=== PATIENT | male | born 1985 | race Caucasian/White ===

== ENCOUNTER 2018-05-29 10:42 | Emergency (ER) | payer OTHER ==
--- OUTSIDE RECORDS SUMMARY | 2018-05-29 10:47 | XMS REPORT ---
:1985 External Reference #:[id number] Author Organization [employer] Address [address] [place] [address] [place] [address] Phone [phone] Care Team Providers Name Role Phone Hugh Guillen MD Primary Care Physician Unavailable Payers Type Date Identification Numbers Payment Provider Subscriber Commercial PayID: [id number] [employer] Milla Rios [address] [place] [address] Medigap Part B Effective: 2012 Policy Number: BS Facets Milla Rios [id number] Expires: 2018 PayID: [id number] [address] [address] [place] [address] Problems Date Description Provider Status Onset: 05/22/2018 Injury of hip region Jessica Reese M.D. 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 Family History Date Family Member(s) Problem(s) Comments General Unknown Social History Type Date Description Comments Lives With Spouse Occupation Currently Working Occupation overhauler bus truck ETOH Use Denies alcohol use Smoking Patient is a former smoker Recreational Drug Use Denies Drug Use Exercise Type/Frequency Exercises sporadically Allergies, Adverse Reactions, Alerts Date Description Reaction Status Severity Comments 11/06/2014 NKDA active Medications Medication Date Status Form Strength Qnty SIG Indications Ordering Provider Naprosyn 11/07/19 Active Tablets 500mg 60tabs 1 by 722.10 Marko Anand, twice a M.D. day after meals Muscle Relaxer Active Unknown 00 No Active 11/07/19 Hx Marko Medications 15 - Cheng, 11/07/19 Evelin 15 Vital Signs Date Vital Result Comment 05/22/2018 Height 67 inches 5'7" Weight 190.00 lb Heart Rate 68 /min BP Systolic 130 mmHg BP Diastolic 82 mmHg Body Temperature 97.6 F Pain Level 4 BMI (Body Mass Index) 29.8 kg/m2 11/06/2014 Height 67 inches 5'7" Weight 193.00 lb Heart Rate 76 /min BP Systolic Sitting 120 mmHg BP Diastolic Sitting 70 mmHg Pain Level 0 BMI (Body Mass Index) 30.2 kg/m2 Results Description No Information Procedures Description No Information Encounters Type Date Location Provider CPT E/M Dx Office Visit 05/22/2018 [facility] Jessica Reese M.D. 34096 M25.562 9:30a [facility] [place] M25.462 S76.102A Office Visit 11/06/2014 3:00p [facility] Marko Anand, 36468 722.10 [facility] [place] Office Visit 03/07/2012 10:00a [facility] Marko Smyth, 59494 353.0 Services [facility] [place] 331.83 Plan of Care 05/22/2018 - Jessica Reese M.D.M25.562 Pain in left kneeM25.462 Effusion, left kneeS76.102A Unsp injury of left quadriceps musc/fasc/tend, initNew Therapy: Physical TherapyFollow up:Follow up: after testing is completed - mri l knee
[2018-05-29 11:11] VITALS: BP 121/75
[2018-05-29] MEDS ORDERED: Tetan/Diph/Pertus SYR(Tdap)* 0.5 ML SYR(BOOSTRIX) use SYR IM ONE (11:44)
[2018-05-29] MEDS ORDERED: Amoxicillin/Clavulanate TAB* 875 MG PO ONE (11:50)
--- NOTE | 2018-05-29 12:01 | UC ---
Head Injury HPI - HPI Summary HPI Summary: 32 year old male with no PMH, no medications, yesterday afternoon put drill bit through left index finger at tip, + bleeding, + pain, no treatment overnight. Feeling well otherwise, some decreased sensation at end of finger, feels "asleep ", no drainage., has MRI this afternoon. - History Of Current Complaint Chief Complaint: UCUpperExtremity Stated Complaint: FINGER INJURY Time Seen by Provider: 05/29/18 11:43 Hx Obtained From: Patient Onset/Duration: Sudden Onset Severity Currently: Mild Severity Initially: Moderate Pain Intensity: 7 Pain Scale Used: 0-10 Numeric - Allergies/Home Medications Allergies/Adverse Reactions: Allergies Allergy/AdvReac Type Severity Reaction Status Date / Time No Known Allergies Allergy Verified 05/29/18 11:11 Home Medications: Home Medications Cholecalciferol (Vitamin D3) [Vitamin D3] 1,000 unit PO 05/29/18 [History] PMH/Surg Hx/FS Hx/Imm Hx Previously Healthy: Yes - Surgical History Surgical History: Yes Surgery Procedure, Year, and Place: RIGHT HAND SURGERY-REATTACHED PINKY FINGER - Family History Known Family History: Positive: None - Social History Alcohol Use: None Substance Use Type: None Smoking Status (MU): Former Smoker Type: Cigarettes Amount Used/How Often: quit 2009 Have You Smoked in the Last Year: No Review of Systems Musculoskeletal: Arthralgia, Decreased ROM, Edema, Myalgia Is Patient Immunocompromised?: No All Other Systems Reviewed And Are Negative: Yes Physical Exam Triage Information Reviewed: Yes Appearance: Well-Appearing, No Pain Distress, Well-Nourished Vital Signs: Initial Vital Signs Temp 98.9 F 05/29/18 11:06 Pulse 64 05/29/18 11:06 Resp 18 05/29/18 11:06 BP 121/75 05/29/18 11:06 Pulse Ox 99 05/29/18 11:06 Vital Signs Reviewed: Yes Eye Exam: Normal Musculoskeletal: Positive: Strength Intact - slightly diminished to reistence 2nd DIP 2nd MCP, PIP intact., ROM Intact Neurological Exam: Normal Neurological: Positive: Other: - slightly decreased sensation to light touch DIP 2nd l Skin: Positive: Other - two puncture wounds over lateral 2nd DIP L to dorsal side. no bleeding drainage, no erythema, warmth noted. ROM decreased due to pain but AROM against resistance to DIP, PIP MCP 2nd L hand. No swelling, tendneress of other joints, no lymphangitic spread noted. Head Injury Course/Dx - Course Course Of Treatment: X-ray: metalic FB seen superficial, after irrigationand gentle non-abrasive debridement, repeat x-ray negative. wound soaked, dressing , ABX. - Warm soapy water soaks three times a day for 5-10 minutes. - Return with increased swelling, pain, redness. - Follow up with ortho for wound check in 5-7 days. - daily dressing- gauze over openings covered with Koban dressing , change when wet or at least daily. - OK to shower, do not soak/ exposure hand to dishwater, chemicals, etc. - Differential Dx/Diagnosis Differential Diagnosis/HQI/PQRI: Hematoma, Laceration Provider Diagnoses: puncture wound left DIP 2nd Discharge - Sign-Out/Discharge Documenting (check all that apply): Patient Departure All imaging exams completed and their final reports reviewed: Yes - Discharge Plan Condition: Good Disposition: HOME Prescriptions: Amoxicillin/Clavulanate TAB* [Augmentin TAB 875*] 875 mg PO BID #20 tab Patient Education Materials: Puncture Wound (ED), Tdap and Td Vaccines for Adults (ED) Forms: *Work Release Referrals: Wilmer ANDRADE,Hugh Garcia [Primary Care Provider] - Additional Instructions: - Warm soapy water soaks three times a day for 5-10 minutes - Return with increased swelling, pain, redness. - Follow up with ortho for wound check in 5-7 days - daily dressing- gauze over openings covered with Koban dressing, change when wet or at least daily - OK to shower, do not soak/ exposure hand to dishwater, chemicals, etc. - Billing Disposition and Condition Condition: GOOD Disposition: Home
--- NOTE | 2018-05-29 12:23 | RAD ---
Indication: Distal interphalangeal joint injury. 3 views of left index finger demonstrates a tiny radiopaque foreign body in the soft tissue at the radial aspect of the distal interphalangeal joint. This may represent some residual foreign body. IMPRESSION: There is some residual foreign body in the radial aspect of the soft tissue at the distal interphalangeal joint of the index finger.
--- NOTE | 2018-05-29 13:04 | RAD ---
Indication: Left index finger injury. Comparison is made with exam done earlier the same date. 3 views of left index finger demonstrates no fracture. No other bone or joint abnormality is identified. No residual foreign body is noted. IMPRESSION: No residual foreign body is noted in the left index finger.
== END 2018-05-29 13:13 | disposition home or self-care (01) ==
LOC: UCEAST 10:42
DX: S61.341A Puncture wound with foreign body of left index finger with damage to nail, initial encounter (principal); W31.1XXA Contact with metalworking machines, initial encounter; Y92.9 Unspecified place or not applicable; Z87.891 Personal history of nicotine dependence
CPT/HCPCS: 73140; 90471; 90715; 96372; 99212; A9270-GY; G0463